=== PATIENT | female | born 1955 | race Caucasian/White ===

== ENCOUNTER 2021-08-15 11:00 | Outpatient (RCR) | payer MEDICARE, SELFPAY | END 2021-10-24 10:03 | disposition home or self-care (01) | LOC: HO.PTCHIC 11:00 | PROVIDERS: PCP Physician Assistant Medical; Visit Provider Orthopaedic Surgery | DX: M77.9 Enthesopathy, unspecified (principal) | CPT/HCPCS: 97110; 97140; 97161 ==